=== PATIENT | female | born 1950 | race Caucasian/White ===

== ENCOUNTER 2022-03-03 19:25 | Inpatient (IN) | payer OTHER, MEDICARE, MEDICAID ==
[2022-03-03] MEDS ORDERED: Morphine 4 MG/ML VIAL ONE (20:18)
[2022-03-03 20:44] LABS: #Basophils 0.1 10x3/uL (0.0-0.2); #Monocytes 0.9 10x3/uL (0.0-1.1); #Neutrophils 6.2 10x3/uL (1.5-8.4); %Basophils 0.6 % (0.0-2.0); %Eosinophils 0.2 % (0.0-6.0); %Lymphocytes 18.4 % (18.0-47.0); %Monocytes 9.8 % (0.0-10.0); %Neutrophils 70.3 % (40.0-75.0); Hemoglobin 11.3 g/dL (12.0-15.5); Mean Corpuscular HGB CONC 31.7 g/dL (32.0-36.0); Mean Corpuscular Volume 100.8 fl (81.6-98.3); Mean Platelet Volume 9.5 fl (7.4-10.4); Platelet Count 223 10x3/uL (150-450); RBC Distribution Width 13.7 % (11.5-14.5); Red Blood Cell (RBC) Count 3.53 10x6/uL (3.90-5.03); White Blood Cell (WBC) Count 8.8 10x3/uL (3.5-10.5)
[2022-03-03] MEDS ORDERED: HYDROmorphone 0.5 MG/0.5 ML SYRINGE ONE (20:52)
[2022-03-03 20:57] LABS: ALT (SGPT) 33 U/L (8-55); AST (SGOT) 100 U/L (5-34); Albumin 2.8 g/dL (3.4-4.8); Alkaline Phosphatase 167 U/L (40-110); Anion Gap 10 mmol/L (10-20); BUN (Urea Nitrogen) 9 mg/dL (9.8-20.1); Bilirubin, Total 1.4 mg/dL (0.2-1.2); Calc. Creatinine Clearance 0 mL/min (70-130); Calcium 8.6 mg/dL (7.8-10.44); Carbon Dioxide 25 mmol/L (23-31); Chloride 99 mmol/L (98-107); Globulin 5.3 g/dL (2.4-3.5); Glucose 112 mg/dL (80-115); Protein, Total 8.1 g/dL (5.8-8.1); Sodium 130 mmol/L (136-145)
[2022-03-03 21:18] LABS: SARS-CoV-2 NAA Rapid Test Not Detected (NotDetected)
[2022-03-03 22:56] VITALS: BMI 22.4
[2022-03-03 23:01] LABS: Magnesium 1.5 mg/dL (1.6-2.6)
[2022-03-03] MEDS ORDERED: Enoxaparin Sodium 40 MG/0.4 ML SYRINGE SC SCH (23:15)
[2022-03-03] MEDS: NS 0.9% w/ 20 MEQ KCL 1,000 ML/1,000 ML BAG IV SCH (23:51)
[2022-03-03] MEDS ORDERED: Enoxaparin Sodium 40 MG/0.4 ML SYRINGE ONE (23:52)
[2022-03-03] MEDS: Morphine 2 MG/ML VIAL SLOW IVP PRN (23:53)
[2022-03-04] MEDS: Nicotine 21 MG PATCH TD SCH (01:32)
[2022-03-04] MEDS: Morphine 2 MG/ML VIAL SLOW IVP PRN (03:46)
[2022-03-04 04:46] LABS: #Monocytes 0.6 10x3/uL (0.0-1.1); #Neutrophils 2.7 10x3/uL (1.5-8.4); %Basophils 0.6 % (0.0-2.0); %Eosinophils 0.4 % (0.0-6.0); %Lymphocytes 34.8 % (18.0-47.0); Hemoglobin 11.5 g/dL (12.0-15.5); Mean Corpuscular HGB CONC 32.2 g/dL (32.0-36.0); Mean Corpuscular Hemoglobin 31.8 pg (27.0-33.0); Mean Corpuscular Volume 98.6 fl (81.6-98.3); Mean Platelet Volume 10.8 fl (7.4-10.4); Platelet Count 204 10x3/uL (150-450); RBC Distribution Width 13.7 % (11.5-14.5); Red Blood Cell (RBC) Count 3.62 10x6/uL (3.90-5.03); White Blood Cell (WBC) Count 5.2 10x3/uL (3.5-10.5)
[2022-03-04 05:05] LABS: Anion Gap 12 mmol/L (10-20); BUN (Urea Nitrogen) 10 mg/dL (9.8-20.1); Calc. Creatinine Clearance 72 mL/min (70-130); Calcium 8.3 mg/dL (7.8-10.44); Carbon Dioxide 25 mmol/L (23-31); Chloride 100 mmol/L (98-107); Glucose 157 mg/dL (80-115); Potassium 3.9 mmol/L (3.5-5.1); Sodium 133 mmol/L (136-145)
[2022-03-04] MEDS ORDERED: HYDROmorphone 0.5 MG/0.5 ML SYRINGE SLOW IVP SCH (08:15)
[2022-03-04 08:43] LABS: ALT (SGPT) 30 U/L (8-55); AST (SGOT) 86 U/L (5-34); Albumin 2.6 g/dL (3.4-4.8); Alkaline Phosphatase 156 U/L (40-110); Bilirubin, Direct 0.5 mg/dL (0.1-0.3); CK (CPK) 1515 U/L (29-168); Protein, Total 7.6 g/dL (5.8-8.1)
[2022-03-04] MEDS ORDERED: ceFAZolin 2 GM/Dextrose 50 ML 2 GM in Premix Bag 1 BAG IVPB SCH (10:00)
[2022-03-04] MEDS ORDERED: Dexmedetomidine 200 MCG/2 ML VIAL ONE (10:25)
[2022-03-04] MEDS ORDERED: ceFAZolin 2 GM/Dextrose 50 ML IVPB ONE (10:30)
[2022-03-04] MEDS ORDERED: Fentanyl 100 MCG/2 ML VIAL ONE ×2 (10:33→11:27)
[2022-03-04] MEDS ORDERED: PROPOFOL 20 ML ONE (10:33)
[2022-03-04] MEDS ORDERED: Dexamethasone 4 mg/ml Vial ONE (10:34)
[2022-03-04] MEDS ORDERED: Ondansetron PF 4 MG/2 ML Vial ONE (10:34)
[2022-03-04] MEDS ORDERED: Lidocaine 1% PF 5 ML VIAL ONE (10:34)
[2022-03-04] MEDS: Morphine 4 MG/ML VIAL SLOW IVP PRN ×2 (16:14→20:51)
[2022-03-04] MEDS: ceFAZolin 2 GM/Dextrose 50 ML 2 GM in Premix Bag 1 BAG IVPB SCH (18:43)
[2022-03-04] MEDS: NS 0.9% w/ 20 MEQ KCL 1,000 ML/1,000 ML BAG IV SCH ×2 (20:51→20:52)
[2022-03-04] MEDS ORDERED: GABAPENTIN ENACARBIL 600 MG PO SCH (21:00)
[2022-03-05] MEDS: Nicotine 21 MG PATCH TD SCH (01:28)
[2022-03-05] MEDS: ceFAZolin 2 GM/Dextrose 50 ML 2 GM in Premix Bag 1 BAG IVPB SCH (01:28)
[2022-03-05] MEDS: Morphine 4 MG/ML VIAL SLOW IVP PRN ×5 (01:29→20:27)
[2022-03-05 03:42] LABS: Mean Corpuscular HGB CONC 31.4 g/dL (32.0-36.0); Mean Corpuscular Hemoglobin 31.8 pg (27.0-33.0); Mean Corpuscular Volume 101.4 fl (81.6-98.3); Mean Platelet Volume 9.6 fl (7.4-10.4); Platelet Count 135 10x3/uL (150-450); RBC Distribution Width 13.5 % (11.5-14.5); Red Blood Cell (RBC) Count 2.83 10x6/uL (3.90-5.03); White Blood Cell (WBC) Count 5.2 10x3/uL (3.5-10.5)
[2022-03-05 03:57] LABS: ALT (SGPT) 21 U/L (8-55); AST (SGOT) 45 U/L (5-34); Albumin 2.2 g/dL (3.4-4.8); Alkaline Phosphatase 119 U/L (40-110); Anion Gap 8 mmol/L (10-20); BUN (Urea Nitrogen) 10 mg/dL (9.8-20.1); Bilirubin, Total 0.3 mg/dL (0.2-1.2); CK (CPK) 299 U/L (29-168); Calc. Creatinine Clearance 78 mL/min (70-130); Calcium 7.8 mg/dL (7.8-10.44); Carbon Dioxide 27 mmol/L (23-31); Chloride 104 mmol/L (98-107); Cholesterol 107 mg/dl (< 200 Desired); Globulin 4.4 g/dL (2.4-3.5); Glucose 185 mg/dL (80-115); HDL Cholesterol 27 mg/dL (>60 Neg Risk); LDL Cholesterol, Calculated 64 mg/dL; Magnesium 1.7 mg/dL (1.6-2.6); Potassium 4.1 mmol/L (3.5-5.1); Protein, Total 6.6 g/dL (5.8-8.1); Sodium 135 mmol/L (136-145); Triglycerides 81 mg/dL (Less than 150)
[2022-03-05] MEDS: NS 0.9% w/ 20 MEQ KCL 1,000 ML/1,000 ML BAG IV SCH ×2 (05:24→08:51)
[2022-03-05 05:35] LABS: Bilirubin Neg (Negative); Blood, Urine Negative (Negative); Clarity Slightly Cloudy (Clear); Glucose, Urine (Dipstick) 50 mg/dL (Negative); Ketone, Urine Negative (Negative); Leukocyte 100 (Negative); Nitrite Negative (Negative); Protein, Urine (Dipstick) Negative (Neg-Trace); Specific Gravity, Urine 1.015 (1.002-1.036); Urobilinogen Normal mg/dL (Less than 2)
[2022-03-05 05:39] LABS: Urine Culture Reflex No No
[2022-03-05 05:49] LABS: Creatinine, Urine 67.11 mg/dL (47-110)
[2022-03-05 05:50] LABS: Bacteria/HPF 1+ HPF (None Seen); RBC/HPF 0-3 HPF (0-3); Squamous Epithelial 0-3 HPF (0-3)
[2022-03-05] MEDS: Lisinopril 10 MG TAB PO SCH (08:51)
[2022-03-05] MEDS: Folic Acid 1 MG TAB PO SCH (08:51)
[2022-03-05 12:42] LABS: Hemoglobin A1c 5.1 % (4.0-6.0)
[2022-03-05] MEDS: Albuterol 200 PUFF (6.7GM INHALER) INH SCH ×2 (13:38→19:50)
[2022-03-06] MEDS: Morphine 4 MG/ML VIAL SLOW IVP PRN ×6 (00:52→23:37)
[2022-03-06] MEDS: Nicotine 21 MG PATCH TD SCH (00:58)
[2022-03-06 04:56] LABS: ALT (SGPT) 17 U/L (8-55); AST (SGOT) 37 U/L (5-34); Albumin 2.4 g/dL (3.4-4.8); Alkaline Phosphatase 124 U/L (40-110); Anion Gap 11 mmol/L (10-20); BUN (Urea Nitrogen) 8 mg/dL (9.8-20.1); Bilirubin, Total 0.5 mg/dL (0.2-1.2); Calc. Creatinine Clearance 82 mL/min (70-130); Carbon Dioxide 26 mmol/L (23-31); Chloride 101 mmol/L (98-107); Globulin 4.6 g/dL (2.4-3.5); Glucose 94 mg/dL (80-115); Magnesium 1.5 mg/dL (1.6-2.6); Potassium 4.1 mmol/L (3.5-5.1); Sodium 134 mmol/L (136-145)
[2022-03-06] MEDS: Folic Acid 1 MG TAB PO SCH (08:16)
[2022-03-06] MEDS: Lisinopril 10 MG TAB PO SCH (08:16)
[2022-03-06] MEDS: Albuterol 200 PUFF (6.7GM INHALER) INH SCH ×6 (10:40→20:00)
[2022-03-06] MEDS: Ondansetron PF 4 MG/2 ML Vial IVP PRN ×2 (15:08→21:23)
[2022-03-06] MEDS ORDERED: Promethazine 25 MG TAB PO SCH (23:45)
[2022-03-07] MEDS: Nicotine 21 MG PATCH TD SCH (00:22)
[2022-03-07] MEDS: Albuterol 200 PUFF (6.7GM INHALER) INH SCH ×7 (04:00→19:45)
[2022-03-07] MEDS: Morphine 4 MG/ML VIAL SLOW IVP PRN ×3 (04:05→13:12)
[2022-03-07] MEDS: Ondansetron PF 4 MG/2 ML Vial IVP PRN ×2 (04:22→13:12)
[2022-03-07 05:13] LABS: #Monocytes 0.6 10x3/uL (0.0-1.1); #Neutrophils 4.4 10x3/uL (1.5-8.4); %Basophils 0.3 % (0.0-2.0); %Eosinophils 0.3 % (0.0-6.0); %Lymphocytes 16.6 % (18.0-47.0); %Monocytes 10.4 % (0.0-10.0); %Neutrophils 71.9 % (40.0-75.0); Hemoglobin 11.1 g/dL (12.0-15.5); Mean Corpuscular HGB CONC 33.8 g/dL (32.0-36.0); Mean Corpuscular Hemoglobin 32.3 pg (27.0-33.0); Mean Corpuscular Volume 95.3 fl (81.6-98.3); Platelet Count 185 10x3/uL (150-450); RBC Distribution Width 13.2 % (11.5-14.5); Red Blood Cell (RBC) Count 3.44 10x6/uL (3.90-5.03); White Blood Cell (WBC) Count 6.1 10x3/uL (3.5-10.5)
[2022-03-07 05:36] LABS: ALT (SGPT) 17 U/L (8-55); AST (SGOT) 35 U/L (5-34); Albumin 2.7 g/dL (3.4-4.8); Alkaline Phosphatase 130 U/L (40-110); Anion Gap 16 mmol/L (10-20); BUN (Urea Nitrogen) 6 mg/dL (9.8-20.1); Bilirubin, Total 1.1 mg/dL (0.2-1.2); Calc. Creatinine Clearance 87 mL/min (70-130); Calcium 8.2 mg/dL (7.8-10.44); Carbon Dioxide 23 mmol/L (23-31); Chloride 92 mmol/L (98-107); Globulin 5.1 g/dL (2.4-3.5); Glucose 120 mg/dL (80-115); Magnesium 1.5 mg/dL (1.6-2.6); Potassium 3.6 mmol/L (3.5-5.1); Protein, Total 7.8 g/dL (5.8-8.1); Sodium 127 mmol/L (136-145)
[2022-03-07] MEDS: Folic Acid 1 MG TAB PO SCH (08:38)
[2022-03-07] MEDS: Lisinopril 10 MG TAB PO SCH (08:38)
[2022-03-07] MEDS ORDERED: Lactated Ringer's 500 ML IV SCH (09:30)
[2022-03-07] MEDS: Lactated Ringer's 1,000 ML IV SCH (10:06)
[2022-03-07] MEDS: Labetalol HCl 100 MG/20 ML VIAL SLOW IVP PRN ×2 (10:06→13:13)
[2022-03-07] MEDS ORDERED: Labetalol HCl 100 MG/20 ML VIAL SLOW IVP PRN (14:59)
[2022-03-07] MEDS ORDERED: Lisinopril 10 MG TAB PO SCH (15:00)
[2022-03-07 15:19] LABS: Sodium 126 mmol/L (136-145)
[2022-03-07] MEDS: hydrALAZINE 20 MG/ML VIAL SLOW IVP PRN (16:44)
[2022-03-07] MEDS: traMADol HCl 50 MG TAB PO PRN ×2 (17:39→21:35)
[2022-03-08] MEDS: Albuterol 200 PUFF (6.7GM INHALER) INH SCH ×5 (01:00→19:40)
[2022-03-08] MEDS: Nicotine 21 MG PATCH TD SCH (01:26)
[2022-03-08] MEDS: traMADol HCl 50 MG TAB PO PRN ×5 (01:28→22:18)
[2022-03-08] MEDS: Lactated Ringer's 1,000 ML IV SCH ×2 (03:41→08:01)
[2022-03-08 04:56] LABS: ALT (SGPT) 15 U/L (8-55); AST (SGOT) 30 U/L (5-34); Albumin 2.6 g/dL (3.4-4.8); Alkaline Phosphatase 120 U/L (40-110); Anion Gap 14 mmol/L (10-20); BUN (Urea Nitrogen) 13 mg/dL (9.8-20.1); Bilirubin, Total 1.3 mg/dL (0.2-1.2); Calc. Creatinine Clearance 87 mL/min (70-130); Calcium 8.4 mg/dL (7.8-10.44); Carbon Dioxide 23 mmol/L (23-31); Chloride 89 mmol/L (98-107); Globulin 4.7 g/dL (2.4-3.5); Glucose 102 mg/dL (80-115); Magnesium 1.5 mg/dL (1.6-2.6); Potassium 3.3 mmol/L (3.5-5.1); Protein, Total 7.3 g/dL (5.8-8.1); Sodium 123 mmol/L (136-145)
[2022-03-08] MEDS: Ondansetron PF 4 MG/2 ML Vial IVP PRN (05:29)
[2022-03-08] MEDS: hydrALAZINE 20 MG/ML VIAL SLOW IVP PRN (05:32)
[2022-03-08 07:30] LABS: #Eosinphils 0.1 10x3/uL (0.0-0.5); #Monocytes 0.9 10x3/uL (0.0-1.1); #Neutrophils 6.9 10x3/uL (1.5-8.4); %Basophils 0.2 % (0.0-2.0); %Eosinophils 0.7 % (0.0-6.0); %Lymphocytes 16.1 % (18.0-47.0); %Monocytes 9.5 % (0.0-10.0); %Neutrophils 73.1 % (40.0-75.0); Hemoglobin 11.6 g/dL (12.0-15.5); Mean Corpuscular HGB CONC 34.9 g/dL (32.0-36.0); Mean Corpuscular Hemoglobin 32.4 pg (27.0-33.0); Mean Corpuscular Volume 92.7 fl (81.6-98.3); Mean Platelet Volume 9.8 fl (7.4-10.4); Platelet Count 237 10x3/uL (150-450); RBC Distribution Width 13.2 % (11.5-14.5); Red Blood Cell (RBC) Count 3.58 10x6/uL (3.90-5.03); White Blood Cell (WBC) Count 9.4 10x3/uL (3.5-10.5)
[2022-03-08] MEDS: Lisinopril 20 MG TAB PO SCH (08:00)
[2022-03-08] MEDS: Folic Acid 1 MG TAB PO SCH (08:01)
[2022-03-08] MEDS: Magnesium 2 GM/50 ML(in water) 2 GM in Premix Bag 1 BAG IVPB SCH (10:27)
[2022-03-08] MEDS ORDERED: Sodium Chloride 3% 200 ML IVPB SCH (11:00)
[2022-03-08] MEDS ORDERED: Potassium Chloride 20 MEQ TAB PO SCH (11:00)
[2022-03-08 14:01] LABS: Bilirubin Neg (Negative); Blood, Urine 10 (Negative); Clarity Cloudy (Clear); Glucose, Urine (Dipstick) Normal (Negative); Ketone, Urine Negative (Negative); Leukocyte 100 (Negative); Nitrite Negative (Negative); Protein, Urine (Dipstick) 30 mg/dl (Neg-Trace)
[2022-03-08 14:11] LABS: WBC/HPF 21-50 HPF (0-3)
[2022-03-08 14:12] LABS: Bacteria/HPF 3+ HPF (None Seen); Mucous/LPF 2+ LPF (<2+); Transitional Epithelial 0-3 HPF (None Seen)
[2022-03-08 14:25] LABS: Creatinine, Urine 58.88 mg/dL (47-110)
[2022-03-08 14:44] LABS: Anion Gap 15 mmol/L (10-20); BUN (Urea Nitrogen) 23 mg/dL (9.8-20.1); Calc. Creatinine Clearance 56 mL/min (70-130); Calcium 8.7 mg/dL (7.8-10.44); Carbon Dioxide 23 mmol/L (23-31); Chloride 87 mmol/L (98-107); Glucose 95 mg/dL (80-115); Potassium 4.1 mmol/L (3.5-5.1); Sodium 121 mmol/L (136-145)
[2022-03-08] MEDS: Potassium Chloride 20 MEQ TAB PO SCH (17:28)
[2022-03-08 17:33] LABS: Anion Gap 12 mmol/L (10-20); BUN (Urea Nitrogen) 28 mg/dL (9.8-20.1); Calc. Creatinine Clearance 45 mL/min (70-130); Calcium 8.6 mg/dL (7.8-10.44); Carbon Dioxide 27 mmol/L (23-31); Chloride 91 mmol/L (98-107); Glucose 92 mg/dL (80-115); Potassium 4.2 mmol/L (3.5-5.1); Sodium 126 mmol/L (136-145)
[2022-03-09] MEDS: Albuterol 200 PUFF (6.7GM INHALER) INH SCH ×6 (01:00→20:45)
[2022-03-09] MEDS: traMADol HCl 50 MG TAB PO PRN ×3 (03:48→20:42)
[2022-03-09] MEDS: Nicotine 21 MG PATCH TD SCH (03:50)
[2022-03-09 04:55] LABS: #Eosinphils 0.1 10x3/uL (0.0-0.5); #Neutrophils 4.4 10x3/uL (1.5-8.4); %Basophils 0.3 % (0.0-2.0); %Eosinophils 1.4 % (0.0-6.0); %Lymphocytes 22.2 % (18.0-47.0); %Monocytes 13.6 % (0.0-10.0); %Neutrophils 62.1 % (40.0-75.0); Mean Corpuscular Hemoglobin 31.3 pg (27.0-33.0); Mean Platelet Volume 9.1 fl (7.4-10.4); Platelet Count 235 10x3/uL (150-450); RBC Distribution Width 13.6 % (11.5-14.5); Red Blood Cell (RBC) Count 3.19 10x6/uL (3.90-5.03); White Blood Cell (WBC) Count 7.1 10x3/uL (3.5-10.5)
[2022-03-09 05:12] LABS: ALT (SGPT) 15 U/L (8-55); AST (SGOT) 26 U/L (5-34); Albumin 2.3 g/dL (3.4-4.8); Alkaline Phosphatase 101 U/L (40-110); Anion Gap 13 mmol/L (10-20); BUN (Urea Nitrogen) 31 mg/dL (9.8-20.1); Calc. Creatinine Clearance 62 mL/min (70-130); Carbon Dioxide 22 mmol/L (23-31); Chloride 100 mmol/L (98-107); Globulin 3.9 g/dL (2.4-3.5); Glucose 82 mg/dL (80-115); Magnesium 1.8 mg/dL (1.6-2.6); Potassium 4.2 mmol/L (3.5-5.1); Protein, Total 6.2 g/dL (5.8-8.1); Sodium 131 mmol/L (136-145)
[2022-03-09] MEDS: Potassium Chloride 20 MEQ TAB PO SCH ×2 (08:33→17:15)
[2022-03-09] MEDS: Folic Acid 1 MG TAB PO SCH (08:34)
[2022-03-09] MEDS: Lisinopril 20 MG TAB PO SCH (09:46)
[2022-03-09] MEDS: Magnesium 2 GM/50 ML(in water) 2 GM in Premix Bag 1 BAG IVPB SCH (12:36)
[2022-03-09 15:20] LABS: Anion Gap 12 mmol/L (10-20); BUN (Urea Nitrogen) 30 mg/dL (9.8-20.1); Calc. Creatinine Clearance 64 mL/min (70-130); Calcium 8.3 mg/dL (7.8-10.44); Carbon Dioxide 23 mmol/L (23-31); Chloride 101 mmol/L (98-107); Glucose 130 mg/dL (80-115); Sodium 131 mmol/L (136-145)
[2022-03-10] MEDS: traMADol HCl 50 MG TAB PO PRN ×4 (00:50→13:38)
[2022-03-10] MEDS: Nicotine 21 MG PATCH TD SCH (00:50)
[2022-03-10] MEDS: Albuterol 200 PUFF (6.7GM INHALER) INH SCH ×5 (01:00→15:30)
[2022-03-10 04:02] LABS: #Basophils 0.1 10x3/uL (0.0-0.2); #Eosinphils 0.1 10x3/uL (0.0-0.5); #Monocytes 0.8 10x3/uL (0.0-1.1); #Neutrophils 3.2 10x3/uL (1.5-8.4); %Basophils 0.9 % (0.0-2.0); %Eosinophils 1.6 % (0.0-6.0); %Lymphocytes 25.8 % (18.0-47.0); %Monocytes 13.7 % (0.0-10.0); %Neutrophils 57.5 % (40.0-75.0); Hemoglobin 9.9 g/dL (12.0-15.5); Mean Corpuscular HGB CONC 33.2 g/dL (32.0-36.0); Mean Corpuscular Hemoglobin 32.5 pg (27.0-33.0); Mean Corpuscular Volume 97.7 fl (81.6-98.3); Platelet Count 236 10x3/uL (150-450); RBC Distribution Width 14.2 % (11.5-14.5); Red Blood Cell (RBC) Count 3.05 10x6/uL (3.90-5.03); White Blood Cell (WBC) Count 5.6 10x3/uL (3.5-10.5)
[2022-03-10 04:18] LABS: ALT (SGPT) 16 U/L (8-55); AST (SGOT) 33 U/L (5-34); Albumin 2.4 g/dL (3.4-4.8); Alkaline Phosphatase 105 U/L (40-110); Anion Gap 10 mmol/L (10-20); BUN (Urea Nitrogen) 19 mg/dL (9.8-20.1); Calc. Creatinine Clearance 82 mL/min (70-130); Calcium 8.2 mg/dL (7.8-10.44); Carbon Dioxide 23 mmol/L (23-31); Chloride 102 mmol/L (98-107); Globulin 4.2 g/dL (2.4-3.5); Glucose 84 mg/dL (80-115); Magnesium 1.8 mg/dL (1.6-2.6); Potassium 4.7 mmol/L (3.5-5.1); Protein, Total 6.6 g/dL (5.8-8.1); Sodium 130 mmol/L (136-145)
[2022-03-10] MEDS: Potassium Chloride 20 MEQ TAB PO SCH ×2 (08:27→16:53)
[2022-03-10] MEDS: Folic Acid 1 MG TAB PO SCH (08:27)
[2022-03-10] MEDS: Sodium Chloride 1 GM TAB PO SCH ×2 (08:45→16:53)
[2022-03-10 13:17] LABS: Kappa Lambda Light Chain Ratio 0.67 (0.26-1.65); Kappa Light Chains 60.9 mg/L (3.3-19.4); Lambda Light Chain 90.5 mg/L (5.7-26.3)
[2022-03-10 15:56] VITALS: TEMP 99
[2022-03-10 16:29] LABS: Urine Total Volume 1500 mL (250-2400)
[2022-03-10] MEDS: Lisinopril 20 MG TAB PO SCH (16:43)
[2022-03-10 16:49] LABS: 24 Hr Creatinine 496.95 mg/24 hr (710-1650); Creatinine, Urine 33.13 mg/dL (47-110)
[2022-03-10 16:51] LABS: Protein, Urine Less than 10 mg/dL (1-14)
[2022-03-10 16:53] VITALS: BP 180/114
[2022-03-11 17:14] LABS: A/G Ratio 0.5 (0.7-1.7); Alpha 1 0.3 g/dL (0.0-0.4); Alpha 2 0.8 g/dL (0.4-1.0); Gamma 2.2 g/dL (0.4-1.8); Globulin, Total 4.3 g/dL (2.2-3.9); M-Spike Not Observed g/dL (Not Observed)
== END 2022-03-10 18:49 | disposition home or self-care (01) | DRG 481 ==
LOC: CSHERS 19:25 → CSHTELE 22:33
PROVIDERS: ADMIT Family Medicine; ATTEND Hospitalist
PROC: 0QS706Z Reposition Left Upper Femur with Intramedullary Internal Fixation Device, Open Approach (ICD-10-PCS; principal; 2022-03-04)
DX: S72.142A Displaced intertrochanteric fracture of left femur, initial encounter for closed fracture (principal); D62 Acute posthemorrhagic anemia; E22.2 Syndrome of inappropriate secretion of antidiuretic hormone; Z20.822 Contact with and (suspected) exposure to COVID-19; I10 Essential (primary) hypertension; G89.29 Other chronic pain; M06.9 Rheumatoid arthritis, unspecified; E87.6 Hypokalemia; E83.42 Hypomagnesemia; M47.9 Spondylosis, unspecified; F17.210 Nicotine dependence, cigarettes, uncomplicated; J44.9 Chronic obstructive pulmonary disease, unspecified; W01.0XXA Fall on same level from slipping, tripping and stumbling without subsequent striking against object, initial encounter; Z79.899 Other long term (current) drug therapy; Z90.49 Acquired absence of other specified parts of digestive tract; Y92.009 Unspecified place in unspecified non-institutional (private) residence as the place of occurrence of the external cause
CPT/HCPCS: 36415; 71045; 80048; 80053; 80061; 80076; 81001; 82306; 82550; 82570; 83036; 83735; 83880; 83883; 83930; 83935; 84156; 84165; 84166; 84300; 84443; 84540; 85025; 85027; 87040; 87086; 93005; 94664; 94760; 96374; 96375; C1713; J0360; J0690; J1100; J1170; J2270; J2405; J2704; J3010; J3475; J3480; J7120; J7131; Q0169; U0002

== ENCOUNTER 2022-12-27 10:49 | Inpatient (IN) | payer OTHER, MEDICAID ==
[~2022-12-27 10:49] MED LIST: Iopamidol 300 61% 100 ML VIAL FS ONE
[2022-12-27] MEDS ORDERED: Ondansetron PF 4 MG/2 ML Vial ONE (11:17)
[2022-12-27] MEDS ORDERED: Pantoprazole 40 MG VIAL ONE (11:17)
[2022-12-27] MEDS ORDERED: Octreotide Acetate 50 MCG/ML AMP ONE (11:18)
[2022-12-27] MEDS ORDERED: Octreotide Acetate 1,250 MCG in Sodium Chloride 0.9% 250 ML 250 ML IVPB SCH (11:30)
[2022-12-27] MEDS ORDERED: Pantoprazole 80 MG, Admixture Fee 1 EACH in Sodium Chloride 0.9% 100 ML IVPB SCH (11:30)
[2022-12-27] MEDS ORDERED: Cefepime 2 GM VIAL ONE (11:46)
[2022-12-27 11:47] LABS: Hemoglobin 13.1 g/dL (12.0-15.5); Mean Corpuscular HGB CONC 32.9 g/dL (32.0-36.0); Mean Corpuscular Hemoglobin 29.8 pg (27.0-33.0); Mean Corpuscular Volume 90.7 fl (81.6-98.3); Mean Platelet Volume 9.6 fl (7.4-10.4); Platelet Count 142 10x3/uL (150-450); Red Blood Cell (RBC) Count 4.39 10x6/uL (3.90-5.03); White Blood Cell (WBC) Count 12.5 10x3/uL (3.5-10.5)
[2022-12-27 11:50] LABS: INR-International Normal Ratio 1.5; PTT 27.3 sec (22.0-33.0); Prothrombin Time 16.2 sec (9.5-12.1)
[2022-12-27 11:54] LABS: ALT (SGPT) 29 U/L (8-55); AST (SGOT) 38 U/L (5-34); Albumin 2.2 g/dL (3.4-4.8); Alkaline Phosphatase 134 U/L (40-110); Anion Gap 12 mmol/L (10-20); BUN (Urea Nitrogen) 10 mg/dL (9.8-20.1); Bilirubin, Total 1.5 mg/dL (0.2-1.2); Calc. Creatinine Clearance 0 mL/min (70-130); Calcium 7.2 mg/dL (7.8-10.44); Carbon Dioxide 19 mmol/L (23-31); Chloride 100 mmol/L (98-107); Estimated GFR 101; Globulin 5.8 g/dL (2.4-3.5); Glucose 112 mg/dL (80-115); Lipase 4 U/L (8-78); Potassium 3.3 mmol/L (3.5-5.1); Sodium 128 mmol/L (136-145)
[2022-12-27] MEDS ORDERED: Vancomycin HCl 750 MG in Sodium Chloride 0.9% 250 ML 250 ML IVPB SCH (12:00)
[2022-12-27 12:42] LABS: Band 33 % (5-11); Lymphocytes 5 % (21-51); Metamyelocyte 4 % (0-0); Monocytes 5 % (0-10); Reactive Lymphocytes 2 % (0-10)
[2022-12-27 12:48] LABS: Dohle Bodies SLIGHT; Large Platelets SLIGHT; Neutrophil 51 % (42-75); Platelet Clumps SLIGHT; Platelet Morphology Comment Appears Adequate; Toxic Granulation SLIGHT; Vacuoles SLIGHT
[2022-12-27 12:50] LABS: MDiff Complete? YES
[2022-12-27 12:51] LABS: RBC Morphology Normal
[2022-12-27 13:34] LABS: SARS-CoV-2 NAA Rapid Test Not Detected (NotDetected)
[2022-12-27 14:00] LABS: Bilirubin Neg (Negative); Blood, Urine 150 (Negative); Clarity Cloudy (Clear); Glucose, Urine (Dipstick) Normal (Negative); Ketone, Urine Negative (Negative); Leukocyte 500 (Negative); Nitrite Positive (Negative); Protein, Urine (Dipstick) 30 mg/dl (Neg-Trace); pH, Urine 6.5 (5.0-9.0)
[2022-12-27] MEDS ORDERED: Acetaminophen 325 MG TAB PO PRN (14:32)
[2022-12-27] MEDS ORDERED: Ondansetron PF 4 MG/2 ML Vial IVP PRN (14:32)
[2022-12-27 14:45] LABS: WBC/HPF Greater than 50 HPF (0-3)
[2022-12-27 14:46] LABS: Bacteria/HPF 3+ HPF (None Seen)
[2022-12-27 14:47] LABS: Mucous/LPF 1+ LPF (<2+)
[2022-12-27 15:08] LABS: Lactic Acid 2.6 mmol/L (0.5-2.2)
[2022-12-27 15:14] LABS: Magnesium 1.3 mg/dL (1.6-2.6)
[2022-12-27 15:58] VITALS: BMI 20.5
[2022-12-27] MEDS ORDERED: Potassium Chloride 20 MEQ in Premix Bag 1 BAG IVPB SCH (16:15)
[2022-12-27] MEDS: D5 1/2 NS w/20 mEq KCL 1,000 ML IV SCH ×2 (16:25→23:49)
[2022-12-27] MEDS: Nicotine 21 MG PATCH TD SCH (16:26)
[2022-12-27 17:37] LABS: Hemoglobin 12.2 g/dL (12.0-15.5)
[2022-12-27] MEDS: Cefepime 1 GM in Sodium Chloride 0.9% 100 ML IVPB SCH (23:31)
[2022-12-28] MEDS ORDERED: Fentanyl 100 MCG/2 ML VIAL SLOW IVP SCH (03:45)
[2022-12-28] MEDS ORDERED: Octreotide Acetate 1,250 MCG in Sodium Chloride 0.9% 250 ML 250 ML IVPB SCH (04:15)
[2022-12-28] MEDS ORDERED: Pantoprazole 80 MG, Admixture Fee 1 EACH in Sodium Chloride 0.9% 100 ML IVPB SCH (04:30)
[2022-12-28 04:43] LABS: ALT (SGPT) 21 U/L (8-55); AST (SGOT) 25 U/L (5-34); Albumin 1.9 g/dL (3.4-4.8); Alkaline Phosphatase 90 U/L (40-110); Anion Gap 10 mmol/L (10-20); BUN (Urea Nitrogen) 10 mg/dL (9.8-20.1); Bilirubin, Total 0.9 mg/dL (0.2-1.2); Calc. Creatinine Clearance 77 mL/min (70-130); Calcium 8.1 mg/dL (7.8-10.44); Carbon Dioxide 20 mmol/L (23-31); Chloride 106 mmol/L (98-107); Estimated GFR 101; Globulin 4.8 g/dL (2.4-3.5); Glucose 187 mg/dL (80-115); Potassium 3.6 mmol/L (3.5-5.1); Protein, Total 6.7 g/dL (5.8-8.1); Sodium 132 mmol/L (136-145)
[2022-12-28 05:13] LABS: Iron 13 ug/dL (50-170); Iron Binding Capacity, Total 153 mcg/dL (265-497)
[2022-12-28 05:13] LABS: #Monocytes 0.5 10x3/uL (0.0-1.1); %Basophils 0.4 % (0.0-2.0); %Eosinophils 0.1 % (0.0-6.0); %Lymphocytes 11.1 % (18.0-47.0); %Monocytes 5.6 % (0.0-10.0); %Neutrophils 82.1 % (40.0-75.0); Hemoglobin 11.9 g/dL (12.0-15.5); Mean Corpuscular Hemoglobin 30.1 pg (27.0-33.0); Mean Corpuscular Volume 93.9 fl (81.6-98.3); Mean Platelet Volume 9.7 fl (7.4-10.4); RBC Distribution Width 14.3 % (11.5-14.5); Red Blood Cell (RBC) Count 3.96 10x6/uL (3.90-5.03); White Blood Cell (WBC) Count 8.5 10x3/uL (3.5-10.5)
[2022-12-28 05:14] LABS: Platelet Count 123 10x3/uL (150-450)
[2022-12-28 06:11] LABS: Band 27 % (5-11); Lymphocytes 12 % (21-51); Metamyelocyte 1 % (0-0); Monocytes 6 % (0-10)
[2022-12-28 06:12] LABS: Neutrophil 54 % (42-75)
[2022-12-28 06:13] LABS: Platelet Morphology Comment Appears Decreased; RBC Morphology Normal; Toxic Granulation SLIGHT; Vacuoles SLIGHT
[2022-12-28] MEDS ORDERED: Ipratropium/Albuterol 3 ML NEB NEB PRN (07:41)
[2022-12-28] MEDS: D5 1/2 NS w/20 mEq KCL 1,000 ML IV SCH (09:40)
[2022-12-28] MEDS ORDERED: Sodium Chloride 0.9% 100 ML ONE (11:04)
[2022-12-28] MEDS: Cefepime 1 GM in Sodium Chloride 0.9% 100 ML IVPB SCH ×2 (11:05→23:17)
[2022-12-28] MEDS ORDERED: Ketamine 50 MG/ML (10ML VIAL) ONE (11:18)
[2022-12-28] MEDS ORDERED: PROPOFOL 0 ML ONE (11:48)
[2022-12-28] MEDS ORDERED: Fentanyl 100 MCG/2 ML VIAL ONE (11:49)
[2022-12-28] MEDS: HYDROcodone/Acetaminophen 7.5/325 mg Tablet PO PRN ×2 (13:52→19:53)
[2022-12-28] MEDS ORDERED: Vancomycin HCl 1 GM in Sodium Chloride 0.9% 250 ML 250 ML IVPB SCH (15:15)
[2022-12-28] MEDS: Nicotine 21 MG PATCH TD SCH (16:16)
[2022-12-28] MEDS ORDERED: VANCOMYCIN 1.25 GM/250 ML BAG IVPB SCH (21:00)
[2022-12-29] MEDS: HYDROcodone/Acetaminophen 7.5/325 mg Tablet PO PRN ×4 (02:29→23:18)
[2022-12-29] MEDS: D5 1/2 NS w/20 mEq KCL 1,000 ML IV SCH ×3 (02:30→16:47)
[2022-12-29 03:55] LABS: #Eosinphils 0.1 10x3/uL (0.0-0.5); #Monocytes 0.4 10x3/uL (0.0-1.1); %Basophils 0.3 % (0.0-2.0); %Eosinophils 0.9 % (0.0-6.0); %Lymphocytes 14.3 % (18.0-47.0); %Monocytes 5.7 % (0.0-10.0); Hemoglobin 11.4 g/dL (12.0-15.5); Mean Corpuscular HGB CONC 32.2 g/dL (32.0-36.0); Mean Corpuscular Hemoglobin 30.2 pg (27.0-33.0); Mean Corpuscular Volume 93.7 fl (81.6-98.3); Mean Platelet Volume 9.7 fl (7.4-10.4); Platelet Count 115 10x3/uL (150-450); RBC Distribution Width 14.4 % (11.5-14.5); Red Blood Cell (RBC) Count 3.78 10x6/uL (3.90-5.03); White Blood Cell (WBC) Count 6.5 10x3/uL (3.5-10.5)
[2022-12-29 04:02] LABS: Anion Gap 9 mmol/L (10-20); BUN (Urea Nitrogen) 8 mg/dL (9.8-20.1); Calc. Creatinine Clearance 95 mL/min (70-130); Carbon Dioxide 21 mmol/L (23-31); Chloride 107 mmol/L (98-107); Estimated GFR 105; Glucose 107 mg/dL (80-115); Potassium 3.3 mmol/L (3.5-5.1); Sodium 134 mmol/L (136-145)
[2022-12-29] MEDS ORDERED: Pantoprazole 40 MG VIAL IVP SCH (09:00)
[2022-12-29] MEDS: Cefepime 1 GM in Sodium Chloride 0.9% 100 ML IVPB SCH ×2 (11:34→23:18)
[2022-12-29] MEDS ORDERED: Vancomycin HCl 750 MG in Sodium Chloride 0.9% 250 ML 250 ML IVPB SCH (15:00)
[2022-12-29] MEDS: Nicotine 21 MG PATCH TD SCH (16:21)
[2022-12-30] MEDS: HYDROcodone/Acetaminophen 7.5/325 mg Tablet PO PRN ×4 (06:31→22:16)
[2022-12-30] MEDS ORDERED: Pantoprazole 40 MG VIAL IVP SCH (09:00)
[2022-12-30] MEDS: Cefepime 1 GM in Sodium Chloride 0.9% 100 ML IVPB SCH (12:11)
[2022-12-30] MEDS: D5 1/2 NS w/20 mEq KCL 1,000 ML IV SCH (12:16)
[2022-12-30 12:59] LABS: HBCM Index 0.08 S/CO (0-0.79); HBSAg Index 0.39 S/CO (0-0.99); Hep A IgM AB Non-Reactive (NonReactive); Hep A IgM S/CO 0.16 S/CO (0-0.79); Hep B Surf Ag Non-Reactive S/CO (NonReactive); Hep C IgG Ab Non-Reactive (NonReactive); Hep C Index 0.28 S/CO (0-0.79); Hepatitis B Core IgM Abs Non-Reactive (NonReactive)
[2022-12-30 13:50] LABS: EliA Vaculitis New Method **** NEW METHOD ****
[2022-12-30 14:33] LABS: ANA Symphony (Qualitative) Equivocal: See Note (Negative); ANA Symphony (Quantitative) 0.8 Ratio (< 0.7 Negative); dsDNA IgG Antibody 8.4 IU/mL (<10 Negative)
[2022-12-30] MEDS: Nicotine 21 MG PATCH TD SCH (16:22)
[2022-12-30] MEDS: Cefdinir 300 MG CAP PO SCH (20:47)
[2022-12-30] MEDS ORDERED: Cefepime 2 GM in Sodium Chloride 0.9% 100 ML IVPB SCH (23:59)
[2022-12-31 04:56] LABS: #Eosinphils 0.1 10x3/uL (0.0-0.5); #Monocytes 0.6 10x3/uL (0.0-1.1); #Neutrophils 4.7 10x3/uL (1.5-8.4); %Basophils 0.3 % (0.0-2.0); %Eosinophils 1.1 % (0.0-6.0); %Monocytes 8.9 % (0.0-10.0); %Neutrophils 73.8 % (40.0-75.0); Hemoglobin 11.6 g/dL (12.0-15.5); Mean Corpuscular HGB CONC 31.8 g/dL (32.0-36.0); Mean Corpuscular Hemoglobin 29.3 pg (27.0-33.0); Mean Corpuscular Volume 92.2 fl (81.6-98.3); Mean Platelet Volume 9.6 fl (7.4-10.4); Platelet Count 160 10x3/uL (150-450); Red Blood Cell (RBC) Count 3.96 10x6/uL (3.90-5.03); White Blood Cell (WBC) Count 6.4 10x3/uL (3.5-10.5)
[2022-12-31 05:17] LABS: ALT (SGPT) 18 U/L (8-55); AST (SGOT) 33 U/L (5-34); Albumin 2.1 g/dL (3.4-4.8); Alkaline Phosphatase 133 U/L (40-110); Anion Gap 9 mmol/L (10-20); BUN (Urea Nitrogen) 5 mg/dL (9.8-20.1); Bilirubin, Total 0.8 mg/dL (0.2-1.2); Calc. Creatinine Clearance 105 mL/min (70-130); Calcium 7.9 mg/dL (7.8-10.44); Carbon Dioxide 25 mmol/L (23-31); Chloride 103 mmol/L (98-107); Estimated GFR 106; Globulin 5.1 g/dL (2.4-3.5); Glucose 102 mg/dL (80-115); Potassium 3.2 mmol/L (3.5-5.1); Protein, Total 7.2 g/dL (5.8-8.1); Sodium 134 mmol/L (136-145)
[2022-12-31] MEDS: HYDROcodone/Acetaminophen 7.5/325 mg Tablet PO PRN ×4 (05:53→23:50)
[2022-12-31] MEDS ORDERED: D5 1/2 NS w/20 mEq KCL 1,000 ML ONE (06:40)
[2022-12-31] MEDS: D5 1/2 NS w/20 mEq KCL 1,000 ML IV SCH (06:47)
[2022-12-31] MEDS ORDERED: Electrolyte Replacement Protocol 1 EACH FS SCH (07:15)
[2022-12-31 07:41] LABS: Magnesium 1.4 mg/dL (1.6-2.6); Phosphorus 2.3 mg/dL (2.3-4.7)
[2022-12-31] MEDS ORDERED: Potassium Chloride 20 MEQ TAB PO SCH (08:00)
[2022-12-31] MEDS: Cefdinir 300 MG CAP PO SCH ×2 (08:50→21:51)
[2022-12-31] MEDS ORDERED: Polyethylene Glycol 3350 17 GM Packet PO PRN (09:39)
[2022-12-31] MEDS ORDERED: Senokot S 8.6-50 MG TAB PO SCH ×2 (10:00→21:00)
[2022-12-31] MEDS: Magnesium 2 GM/50 ML(in water) 2 GM in Premix Bag 1 BAG IVPB SCH ×2 (11:28→14:18)
[2022-12-31] MEDS ORDERED: Magnesium 2 GM/50 ML BAG (IN WATER) ONE (11:41)
[2022-12-31] MEDS ORDERED: Saccharomyces boulardii 250 MG CAP PO SCH (14:00)
[2022-12-31 14:14] LABS: Potassium 3.6 mmol/L (3.5-5.1)
[2022-12-31] MEDS: Nicotine 21 MG PATCH TD SCH (16:59)
[2022-12-31] MEDS ORDERED: Cholecalciferol 1,000 UNITS (25 MCG) TAB PO SCH (21:00)
[2022-12-31] MEDS ORDERED: Cyanocobalamin (Vitamin B-12) 1,000 MCG TAB PO SCH (21:00)
[2022-12-31] MEDS ORDERED: Folic Acid 1 MG TAB PO SCH (21:00)
[2022-12-31] MEDS ORDERED: Bisacodyl 10 MG SUPP PR SCH (21:00)
[2022-12-31] MEDS ORDERED: Nadolol 40 MG TAB PO SCH (21:00)
[2022-12-31] MEDS ORDERED: Multivit, Therapeutic 1 TAB PO SCH (21:00)
[2022-12-31] MEDS: Senokot S 8.6-50 MG TAB PO SCH (22:43)
[2023-01-01] MEDS: HYDROcodone/Acetaminophen 7.5/325 mg Tablet PO PRN ×2 (06:01→12:42)
[2023-01-01 06:03] LABS: Anion Gap 9 mmol/L (10-20); BUN (Urea Nitrogen) 6 mg/dL (9.8-20.1); Calc. Creatinine Clearance 101 mL/min (70-130); Calcium 7.7 mg/dL (7.8-10.44); Carbon Dioxide 24 mmol/L (23-31); Chloride 103 mmol/L (98-107); Estimated GFR 106; Glucose 92 mg/dL (80-115); Magnesium 2.1 mg/dL (1.6-2.6); Potassium 3.4 mmol/L (3.5-5.1); Sodium 133 mmol/L (136-145)
[2023-01-01] MEDS ORDERED: Potassium Chloride 20 MEQ TAB PO SCH (08:00)
[2023-01-01] MEDS: Senokot S 8.6-50 MG TAB PO SCH (08:21)
[2023-01-01] MEDS: Cefdinir 300 MG CAP PO SCH (08:21)
[2023-01-01 11:24] VITALS: BP 113/64; TEMP 98
== END 2023-01-01 13:13 | disposition home or self-care (01) | DRG 871 ==
LOC: CSHERS 10:49 → CSHICU 15:54 → CSHTELE 12-30 15:59
PROVIDERS: ADMIT Hospitalist; ATTEND Internal Medicine
PROC: 3E03329 Introduction of Other Anti-infective into Peripheral Vein, Percutaneous Approach (ICD-10-PCS; principal; 2022-12-27)
PROC: 0DJ08ZZ Inspection of Upper Intestinal Tract, Via Natural or Artificial Opening Endoscopic (ICD-10-PCS; 2022-12-28)
DX: A40.3 Sepsis due to Streptococcus pneumoniae (principal); I85.11 Secondary esophageal varices with bleeding; J13 Pneumonia due to Streptococcus pneumoniae; J96.01 Acute respiratory failure with hypoxia; R65.20 Severe sepsis without septic shock; K92.0 Hematemesis; E87.1 Hypo-osmolality and hyponatremia; E87.20 Acidosis, unspecified; J90 Pleural effusion, not elsewhere classified; K76.6 Portal hypertension; N39.0 Urinary tract infection, site not specified; D62 Acute posthemorrhagic anemia; E44.0 Moderate protein-calorie malnutrition; Z66 Do not resuscitate; Z20.822 Contact with and (suspected) exposure to COVID-19; G89.4 Chronic pain syndrome; D63.8 Anemia in other chronic diseases classified elsewhere; K74.60 Unspecified cirrhosis of liver; M06.9 Rheumatoid arthritis, unspecified; K31.89 Other diseases of stomach and duodenum; D69.6 Thrombocytopenia, unspecified; E83.42 Hypomagnesemia; B96.20 Unspecified Escherichia coli [E. coli] as the cause of diseases classified elsewhere; I10 Essential (primary) hypertension; F17.210 Nicotine dependence, cigarettes, uncomplicated; K59.00 Constipation, unspecified; Z79.899 Other long term (current) drug therapy; Z71.6 Tobacco abuse counseling; Z88.5 Allergy status to narcotic agent; Z90.49 Acquired absence of other specified parts of digestive tract; Z68.21 Body mass index [BMI] 21.0-21.9, adult
CPT/HCPCS: 36415; 71045; 74177; 76705; 80048; 80053; 80074; 81003; 81015; 82103; 82105; 82728; 83516; 83540; 83550; 83605; 83690; 83735; 84100; 84484; 85025; 85610; 85730; 86015; 86038; 86225; 86850; 86900; 86901; 87040; 87077; 87086; 87186; 93005; 93010; 94760; 94799; 96361; 96365; 96366; 96367; 96374; 96375; 96376; C9113; J0692; J2354; J2405; J2704; J3010; J3370; J3475; J3480; J3490; J7050; Q9967

== ENCOUNTER 2023-01-17 17:36 | Inpatient (IN) | payer OTHER ==
[~2023-01-17 17:36] MED LIST changes: -Iopamidol 300 61% 100 ML VIAL FS ONE; +Iopamidol 370 76% 100 ML VIAL ONE
[2023-01-17 18:09] LABS: #Eosinphils 0.1 10x3/uL (0.0-0.5); #Monocytes 0.5 10x3/uL (0.0-1.1); #Neutrophils 4.2 10x3/uL (1.5-8.4); %Basophils 0.5 % (0.0-2.0); %Eosinophils 1.1 % (0.0-6.0); %Lymphocytes 25.3 % (18.0-47.0); %Monocytes 7.9 % (0.0-10.0); %Neutrophils 64.7 % (40.0-75.0); Hemoglobin 12.4 g/dL (12.0-15.5); Mean Corpuscular HGB CONC 31.4 g/dL (32.0-36.0); Mean Corpuscular Volume 92.5 fl (81.6-98.3); Mean Platelet Volume 8.8 fl (7.4-10.4); Platelet Count 189 10x3/uL (150-450); RBC Distribution Width 15.1 % (11.5-14.5); Red Blood Cell (RBC) Count 4.27 10x6/uL (3.90-5.03); White Blood Cell (WBC) Count 6.5 10x3/uL (3.5-10.5)
[2023-01-17 18:21] LABS: ALT (SGPT) 13 U/L (8-55); AST (SGOT) 35 U/L (5-34); Albumin 2.1 g/dL (3.4-4.8); Alkaline Phosphatase 103 U/L (40-110); Anion Gap 12 mmol/L (10-20); BUN (Urea Nitrogen) Less than 4 mg/dL (9.8-20.1); Bilirubin, Total 0.8 mg/dL (0.2-1.2); Calc. Creatinine Clearance 0 mL/min (70-130); Calcium 7.6 mg/dL (7.8-10.44); Carbon Dioxide 29 mmol/L (23-31); Chloride 96 mmol/L (98-107); Estimated GFR 102; Globulin 5.4 g/dL (2.4-3.5); Glucose 96 mg/dL (80-115); Potassium 3.6 mmol/L (3.5-5.1); Protein, Total 7.5 g/dL (5.8-8.1); Sodium 133 mmol/L (136-145)
[2023-01-17 18:32] LABS: INR-International Normal Ratio 1.5; PTT 28.5 sec (22.0-33.0); Prothrombin Time 15.8 sec (9.5-12.1)
[2023-01-17 18:34] LABS: Magnesium 1.8 mg/dL (1.6-2.6)
[2023-01-17 18:45] LABS: SARS-CoV-2 NAA Rapid Test Not Detected (NotDetected)
[2023-01-17] MEDS ORDERED: HYDROcodone/Acetaminophen 10/325 mg Tablet ONE (19:04)
[2023-01-17 20:48] LABS: Lactic Acid 1.1 mmol/L (0.5-2.2)
[2023-01-17] MEDS ORDERED: Piperacillin/Tazobactam 3.375 GM in Sodium Chloride 0.9% 100 ML IVPB SCH (22:00)
[2023-01-17] MEDS ORDERED: Ondansetron PF 4 MG/2 ML Vial IVP PRN (22:18)
[2023-01-17] MEDS ORDERED: Calcium Carbonate 500 MG ChewTAB PO PRN (22:18)
[2023-01-17] MEDS ORDERED: Guaifenesin DM 100-10/5 ML UDCUP PO PRN (22:18)
[2023-01-17] MEDS ORDERED: Acetaminophen 325 MG TAB PO PRN (22:18)
[2023-01-17] MEDS ORDERED: Ipratropium/Albuterol 3 ML NEB NEB PRN (22:22)
[2023-01-17] MEDS ORDERED: cefTRIAXone (ROCEPHIN) 1 GM VIAL ONE (22:31)
[2023-01-17] MEDS ORDERED: Vancomycin 1 GM VIAL ONE (23:09)
[2023-01-17] MEDS ORDERED: traMADol HCl 50 MG TAB ONE (23:59)
[2023-01-18] MEDS: traMADol HCl 50 MG TAB PO PRN ×2 (00:03→10:16)
[2023-01-18] MEDS ORDERED: Piperacillin/Tazobactam 3.375 GM VIAL ONE ×3 (01:32→13:46)
[2023-01-18] MEDS ORDERED: Piperacillin/Tazobactam 3.375 GM in Sodium Chloride 0.9% 100 ML IVPB SCH (02:00)
[2023-01-18 03:05] LABS: #Basophils 0.1 10x3/uL (0.0-0.2); #Eosinphils 0.1 10x3/uL (0.0-0.5); #Monocytes 0.5 10x3/uL (0.0-1.1); #Neutrophils 5.1 10x3/uL (1.5-8.4); %Basophils 0.8 % (0.0-2.0); %Eosinophils 1.9 % (0.0-6.0); %Lymphocytes 22.1 % (18.0-47.0); %Monocytes 6.5 % (0.0-10.0); %Neutrophils 68.4 % (40.0-75.0); Hemoglobin 10.7 g/dL (12.0-15.5); Mean Corpuscular HGB CONC 30.8 g/dL (32.0-36.0); Mean Platelet Volume 8.5 fl (7.4-10.4); Platelet Count 179 10x3/uL (150-450); RBC Distribution Width 14.9 % (11.5-14.5); Red Blood Cell (RBC) Count 3.69 10x6/uL (3.90-5.03); White Blood Cell (WBC) Count 7.4 10x3/uL (3.5-10.5)
[2023-01-18 03:25] LABS: ALT (SGPT) 12 U/L (8-55); AST (SGOT) 27 U/L (5-34); Albumin 1.8 g/dL (3.4-4.8); Alkaline Phosphatase 89 U/L (40-110); Anion Gap 8 mmol/L (10-20); BUN (Urea Nitrogen) Less than 4 mg/dL (9.8-20.1); Bilirubin, Total 0.6 mg/dL (0.2-1.2); Calc. Creatinine Clearance 0 mL/min (70-130); Calcium 7.5 mg/dL (7.8-10.44); Carbon Dioxide 29 mmol/L (23-31); Chloride 99 mmol/L (98-107); Estimated GFR 105; Globulin 4.7 g/dL (2.4-3.5); Glucose 78 mg/dL (80-115); Magnesium 1.7 mg/dL (1.6-2.6); Potassium 2.9 mmol/L (3.5-5.1); Protein, Total 6.5 g/dL (5.8-8.1); Sodium 133 mmol/L (136-145)
[2023-01-18] MEDS: Piperacillin/Tazobactam 3.375 GM in Sodium Chloride 0.9% 100 ML IVPB SCH ×3 (06:01→21:01)
[2023-01-18] MEDS ORDERED: Potassium Chloride 20 MEQ in Premix Bag 1 BAG IVPB SCH (06:30)
[2023-01-18] MEDS ORDERED: Potassium Chloride 20 MEQ TAB PO SCH ×2 (06:30→09:30)
[2023-01-18] MEDS ORDERED: Potassium Chloride 20 MEQ TAB ONE (07:07)
[2023-01-18] MEDS ORDERED: Folic Acid 1 MG TAB ONE (07:08)
[2023-01-18] MEDS ORDERED: Potassium Chloride 20 MEQ/100 ML PREMIX BAG ONE (07:08)
[2023-01-18] MEDS: Budesonide 0.5 MG/2 ML NEB NEB SCH ×2 (07:40→22:13)
[2023-01-18] MEDS ORDERED: Budesonide 0.5 MG/2 ML NEB ONE (07:41)
[2023-01-18] MEDS ORDERED: Electrolyte Replacement Protocol 1 EACH FS SCH (08:00)
[2023-01-18] MEDS: Acetylcysteine 800 MG/4 ML VIAL PO SCH ×2 (08:08→21:10)
[2023-01-18] MEDS: Folic Acid 1 MG TAB PO SCH (08:08)
[2023-01-18] MEDS: guaiFENesin ER 600 MG TAB PO SCH ×2 (08:08→21:00)
[2023-01-18] MEDS: Calcium Carbonate 600 MG + Vit D TAB PO SCH ×2 (08:08→21:00)
[2023-01-18] MEDS: Cyanocobalamin (Vitamin B-12) 1,000 MCG TAB PO SCH (08:08)
[2023-01-18] MEDS ORDERED: Magnesium 2 GM/50 ML(in water) 2 GM in Premix Bag 1 BAG IVPB SCH (09:30)
[2023-01-18] MEDS ORDERED: Magnesium 2 GM/50 ML BAG (IN WATER) ONE (09:39)
[2023-01-18] MEDS ORDERED: traMADol HCl 50 MG TAB ONE (10:15)
[2023-01-18] MEDS: Vancomycin HCl 125 MG/5 ML (BATCHED) UDCUP PO SCH ×3 (11:54→23:58)
[2023-01-18] MEDS ORDERED: Morphine 2 MG/ML VIAL SLOW IVP PRN (12:28)
[2023-01-18] MEDS ORDERED: HYDROcodone/Acetaminophen 5/325 mg Tablet ONE (16:00)
[2023-01-18] MEDS: HYDROcodone/Acetaminophen 5/325 mg Tablet PO PRN ×2 (16:06→23:58)
[2023-01-18 16:53] LABS: Magnesium 2.2 mg/dL (1.6-2.6)
[2023-01-18 18:42] LABS: Calcium 7.9 mg/dL (7.8-10.44)
[2023-01-18] MEDS: Multivit, Therapeutic 1 TAB PO SCH (21:00)
[2023-01-18] MEDS: Mirtazapine 15 MG TAB PO SCH (21:00)
[2023-01-18] MEDS: Nadolol 40 MG TAB PO SCH (21:01)
[2023-01-18 22:02] LABS: Campy jejuni + coli by PCR Negative (Negative); STEC Shiga Toxin 1+2 Negative (Negative); Salmonella spp. by PCR Negative (Negative); Shigella spp + EIEC by PCR Negative (Negative)
[2023-01-19 04:59] LABS: #Eosinphils 0.1 10x3/uL (0.0-0.5); #Monocytes 0.5 10x3/uL (0.0-1.1); #Neutrophils 3.1 10x3/uL (1.5-8.4); %Basophils 0.6 % (0.0-2.0); %Eosinophils 2.4 % (0.0-6.0); %Lymphocytes 30.2 % (18.0-47.0); %Monocytes 8.9 % (0.0-10.0); %Neutrophils 57.7 % (40.0-75.0); Anion Gap 11 mmol/L (10-20); BUN (Urea Nitrogen) Less than 4 mg/dL (9.8-20.1); Calc. Creatinine Clearance 0 mL/min (70-130); Calcium 7.7 mg/dL (7.8-10.44); Carbon Dioxide 28 mmol/L (23-31); Chloride 100 mmol/L (98-107); Estimated GFR 105; Glucose 77 mg/dL (80-115); Hemoglobin 10.2 g/dL (12.0-15.5); Mean Corpuscular HGB CONC 30.7 g/dL (32.0-36.0); Mean Corpuscular Hemoglobin 28.7 pg (27.0-33.0); Mean Corpuscular Volume 93.5 fl (81.6-98.3); Mean Platelet Volume 8.9 fl (7.4-10.4); Phosphorus 2.3 mg/dL (2.3-4.7); Platelet Count 158 10x3/uL (150-450); Potassium 3.6 mmol/L (3.5-5.1); RBC Distribution Width 14.7 % (11.5-14.5); Red Blood Cell (RBC) Count 3.55 10x6/uL (3.90-5.03); Sodium 135 mmol/L (136-145); White Blood Cell (WBC) Count 5.4 10x3/uL (3.5-10.5)
[2023-01-19] MEDS ORDERED: Magnesium 2 GM/50 ML(in water) 2 GM in Premix Bag 1 BAG IVPB SCH (05:15)
[2023-01-19] MEDS: Vancomycin HCl 125 MG/5 ML (BATCHED) UDCUP PO SCH ×3 (06:19→19:15)
[2023-01-19] MEDS: Piperacillin/Tazobactam 3.375 GM in Sodium Chloride 0.9% 100 ML IVPB SCH ×3 (06:19→22:20)
[2023-01-19] MEDS: Budesonide 0.5 MG/2 ML NEB NEB SCH ×2 (07:25→19:25)
[2023-01-19] MEDS: Acetylcysteine 800 MG/4 ML VIAL PO SCH ×2 (07:35→21:04)
[2023-01-19 08:13] VITALS: BMI 23.0
[2023-01-19] MEDS: Calcium Carbonate 600 MG + Vit D TAB PO SCH ×2 (09:13→21:04)
[2023-01-19] MEDS: Folic Acid 1 MG TAB PO SCH (09:13)
[2023-01-19] MEDS: Cyanocobalamin (Vitamin B-12) 1,000 MCG TAB PO SCH (09:13)
[2023-01-19] MEDS: guaiFENesin ER 600 MG TAB PO SCH ×2 (09:13→21:04)
[2023-01-19] MEDS: HYDROcodone/Acetaminophen 5/325 mg Tablet PO PRN ×2 (09:15→21:05)
[2023-01-19] MEDS: Multivit, Therapeutic 1 TAB PO SCH (21:04)
[2023-01-19] MEDS: Mirtazapine 15 MG TAB PO SCH (21:04)
[2023-01-19] MEDS: Nadolol 40 MG TAB PO SCH (21:12)
[2023-01-20] MEDS: Vancomycin HCl 125 MG/5 ML (BATCHED) UDCUP PO SCH ×4 (00:17→18:28)
[2023-01-20 04:34] LABS: #Eosinphils 0.1 10x3/uL (0.0-0.5); #Monocytes 0.3 10x3/uL (0.0-1.1); %Basophils 0.4 % (0.0-2.0); %Eosinophils 2.6 % (0.0-6.0); %Lymphocytes 24.7 % (18.0-47.0); %Monocytes 7.3 % (0.0-10.0); %Neutrophils 64.6 % (40.0-75.0); Hemoglobin 11.4 g/dL (12.0-15.5); Mean Corpuscular HGB CONC 30.4 g/dL (32.0-36.0); Mean Corpuscular Hemoglobin 28.4 pg (27.0-33.0); Mean Corpuscular Volume 93.5 fl (81.6-98.3); Platelet Count 161 10x3/uL (150-450); RBC Distribution Width 14.6 % (11.5-14.5); Red Blood Cell (RBC) Count 4.01 10x6/uL (3.90-5.03); White Blood Cell (WBC) Count 4.7 10x3/uL (3.5-10.5)
[2023-01-20 04:43] LABS: Anion Gap 7 mmol/L (10-20); BUN (Urea Nitrogen) Less than 4 mg/dL (9.8-20.1); Calc. Creatinine Clearance 91 mL/min (70-130); Calcium 7.5 mg/dL (7.8-10.44); Carbon Dioxide 30 mmol/L (23-31); Chloride 102 mmol/L (98-107); Estimated GFR 104; Glucose 107 mg/dL (80-115); Magnesium 1.9 mg/dL (1.6-2.6); Potassium 3.4 mmol/L (3.5-5.1); Sodium 136 mmol/L (136-145)
[2023-01-20] MEDS ORDERED: Potassium Chloride 20 MEQ TAB PO SCH (06:00)
[2023-01-20] MEDS ORDERED: Magnesium 2 GM/50 ML(in water) 2 GM in Premix Bag 1 BAG IVPB SCH (06:00)
[2023-01-20] MEDS: Piperacillin/Tazobactam 3.375 GM in Sodium Chloride 0.9% 100 ML IVPB SCH (06:40)
[2023-01-20] MEDS: Budesonide 0.5 MG/2 ML NEB NEB SCH ×2 (06:45→20:05)
[2023-01-20] MEDS: Acetylcysteine 800 MG/4 ML VIAL PO SCH ×2 (09:00→21:20)
[2023-01-20] MEDS ORDERED: Saccharomyces boulardii 250 MG CAP PO SCH (09:15)
[2023-01-20] MEDS: Calcium Carbonate 600 MG + Vit D TAB PO SCH ×2 (09:39→21:22)
[2023-01-20] MEDS: Cyanocobalamin (Vitamin B-12) 1,000 MCG TAB PO SCH (09:39)
[2023-01-20] MEDS: Folic Acid 1 MG TAB PO SCH (09:39)
[2023-01-20] MEDS: guaiFENesin ER 600 MG TAB PO SCH ×2 (09:39→21:20)
[2023-01-20] MEDS: HYDROcodone/Acetaminophen 5/325 mg Tablet PO PRN ×2 (09:40→21:21)
[2023-01-20] MEDS ORDERED: Lidocaine 2% 6 ML SYR TOP PRN (13:23)
[2023-01-20] MEDS ORDERED: HYDROmorphone 0.5 MG/0.5 ML SYRINGE SLOW IVP SCH (16:30)
[2023-01-20] MEDS: Multivit, Therapeutic 1 TAB PO SCH (21:22)
[2023-01-20] MEDS: Mirtazapine 15 MG TAB PO SCH (21:22)
[2023-01-20] MEDS: Nadolol 40 MG TAB PO SCH (21:23)
[2023-01-21] MEDS: Vancomycin HCl 125 MG/5 ML (BATCHED) UDCUP PO SCH ×4 (00:04→19:54)
[2023-01-21 05:34] LABS: #Eosinphils 0.2 10x3/uL (0.0-0.5); #Monocytes 0.4 10x3/uL (0.0-1.1); #Neutrophils 2.5 10x3/uL (1.5-8.4); %Basophils 0.6 % (0.0-2.0); %Eosinophils 3.4 % (0.0-6.0); %Lymphocytes 33.6 % (18.0-47.0); %Monocytes 7.7 % (0.0-10.0); %Neutrophils 54.5 % (40.0-75.0); Mean Corpuscular HGB CONC 30.4 g/dL (32.0-36.0); Mean Corpuscular Volume 95.5 fl (81.6-98.3); Platelet Count 177 10x3/uL (150-450); RBC Distribution Width 14.6 % (11.5-14.5); Red Blood Cell (RBC) Count 3.79 10x6/uL (3.90-5.03); White Blood Cell (WBC) Count 4.7 10x3/uL (3.5-10.5)
[2023-01-21 05:48] LABS: Anion Gap 11 mmol/L (10-20); BUN (Urea Nitrogen) 4 mg/dL (9.8-20.1); Calc. Creatinine Clearance 81 mL/min (70-130); Calcium 7.8 mg/dL (7.8-10.44); Carbon Dioxide 26 mmol/L (23-31); Chloride 104 mmol/L (98-107); Estimated GFR 101; Glucose 162 mg/dL (80-115); Magnesium 1.9 mg/dL (1.6-2.6); Potassium 4.1 mmol/L (3.5-5.1); Sodium 137 mmol/L (136-145)
[2023-01-21] MEDS ORDERED: Magnesium 2 GM/50 ML(in water) 2 GM in Premix Bag 1 BAG IVPB SCH (06:00)
[2023-01-21] MEDS: HYDROcodone/Acetaminophen 5/325 mg Tablet PO PRN ×3 (06:16→22:29)
[2023-01-21] MEDS: Acetylcysteine 800 MG/4 ML VIAL PO SCH ×2 (10:00→22:28)
[2023-01-21] MEDS: Budesonide 0.5 MG/2 ML NEB NEB SCH ×2 (10:00→18:56)
[2023-01-21] MEDS: Calcium Carbonate 600 MG + Vit D TAB PO SCH ×2 (10:45→21:32)
[2023-01-21] MEDS: Folic Acid 1 MG TAB PO SCH (10:45)
[2023-01-21] MEDS: Saccharomyces boulardii 250 MG CAP PO SCH (10:45)
[2023-01-21] MEDS: guaiFENesin ER 600 MG TAB PO SCH ×2 (10:45→21:33)
[2023-01-21] MEDS: Cyanocobalamin (Vitamin B-12) 1,000 MCG TAB PO SCH (10:46)
[2023-01-21] MEDS: Mirtazapine 15 MG TAB PO SCH (21:32)
[2023-01-21] MEDS: Nadolol 40 MG TAB PO SCH (21:32)
[2023-01-21] MEDS: Multivit, Therapeutic 1 TAB PO SCH (21:33)
[2023-01-22] MEDS: Vancomycin HCl 125 MG/5 ML (BATCHED) UDCUP PO SCH ×5 (01:29→23:20)
[2023-01-22] MEDS: HYDROcodone/Acetaminophen 5/325 mg Tablet PO PRN ×3 (02:21→23:02)
[2023-01-22 06:14] LABS: Magnesium 1.9 mg/dL (1.6-2.6)
[2023-01-22] MEDS: Budesonide 0.5 MG/2 ML NEB NEB SCH ×2 (08:25→21:15)
[2023-01-22] MEDS: Magnesium 2 GM/50 ML(in water) 2 GM in Premix Bag 1 BAG IVPB SCH ×2 (09:03→10:36)
[2023-01-22] MEDS: Acetylcysteine 800 MG/4 ML VIAL PO SCH ×2 (09:04→21:40)
[2023-01-22] MEDS: Calcium Carbonate 600 MG + Vit D TAB PO SCH ×2 (09:04→21:41)
[2023-01-22] MEDS: Folic Acid 1 MG TAB PO SCH (09:05)
[2023-01-22] MEDS: guaiFENesin ER 600 MG TAB PO SCH ×2 (09:05→21:42)
[2023-01-22] MEDS: Cyanocobalamin (Vitamin B-12) 1,000 MCG TAB PO SCH (09:06)
[2023-01-22] MEDS: Saccharomyces boulardii 250 MG CAP PO SCH (09:06)
[2023-01-22] MEDS: Multivit, Therapeutic 1 TAB PO SCH (21:41)
[2023-01-22] MEDS: Mirtazapine 15 MG TAB PO SCH (21:42)
[2023-01-22] MEDS: Nadolol 40 MG TAB PO SCH (23:24)
[2023-01-23] MEDS: HYDROcodone/Acetaminophen 5/325 mg Tablet PO PRN ×6 (02:48→23:11)
[2023-01-23] MEDS ORDERED: Magnesium 2 GM/50 ML(in water) 2 GM in Premix Bag 1 BAG IVPB SCH (06:00)
[2023-01-23] MEDS: Vancomycin HCl 125 MG/5 ML (BATCHED) UDCUP PO SCH ×4 (06:43→23:11)
[2023-01-23] MEDS: Budesonide 0.5 MG/2 ML NEB NEB SCH ×2 (07:24→20:35)
[2023-01-23] MEDS: Calcium Carbonate 600 MG + Vit D TAB PO SCH ×2 (09:42→21:33)
[2023-01-23] MEDS: Cyanocobalamin (Vitamin B-12) 1,000 MCG TAB PO SCH (09:42)
[2023-01-23] MEDS: Folic Acid 1 MG TAB PO SCH (09:42)
[2023-01-23] MEDS: Saccharomyces boulardii 250 MG CAP PO SCH (09:43)
[2023-01-23] MEDS: guaiFENesin ER 600 MG TAB PO SCH ×2 (09:43→21:33)
[2023-01-23] MEDS: Acetylcysteine 800 MG/4 ML VIAL PO SCH ×2 (10:54→21:33)
[2023-01-23] MEDS: Nadolol 40 MG TAB PO SCH (21:33)
[2023-01-23] MEDS: Multivit, Therapeutic 1 TAB PO SCH (21:33)
[2023-01-23] MEDS: Mirtazapine 15 MG TAB PO SCH (21:33)
[2023-01-24 05:32] LABS: Magnesium 1.8 mg/dL (1.6-2.6)
[2023-01-24] MEDS: Vancomycin HCl 125 MG/5 ML (BATCHED) UDCUP PO SCH ×2 (05:42→13:24)
[2023-01-24] MEDS ORDERED: Magnesium 2 GM/50 ML(in water) 2 GM in Premix Bag 1 BAG IVPB SCH (06:00)
[2023-01-24] MEDS: Budesonide 0.5 MG/2 ML NEB NEB SCH (07:45)
[2023-01-24] MEDS: Acetylcysteine 800 MG/4 ML VIAL PO SCH (08:50)
[2023-01-24] MEDS: HYDROcodone/Acetaminophen 5/325 mg Tablet PO PRN ×2 (08:50→13:24)
[2023-01-24] MEDS: Calcium Carbonate 600 MG + Vit D TAB PO SCH (08:50)
[2023-01-24] MEDS: guaiFENesin ER 600 MG TAB PO SCH (08:50)
[2023-01-24] MEDS: Cyanocobalamin (Vitamin B-12) 1,000 MCG TAB PO SCH (08:51)
[2023-01-24] MEDS: Folic Acid 1 MG TAB PO SCH (08:51)
[2023-01-24] MEDS: Saccharomyces boulardii 250 MG CAP PO SCH (08:52)
[2023-01-24 12:07] VITALS: BP 108/67; TEMP 98
== END 2023-01-24 13:27 | DRG 981 ==
LOC: CSHERS 17:36 → CSHERHOLD 22:43 → CSHTELE 01-18 17:42
PROVIDERS: ADMIT Student in an Organized Health Care Education/Training Program; ATTEND Internal Medicine
PROC: 0KBP0ZZ Excision of Left Hip Muscle, Open Approach (ICD-10-PCS; principal; 2023-01-20)
PROC: 0KBN0ZZ Excision of Right Hip Muscle, Open Approach (ICD-10-PCS; 2023-01-20)
DX: J18.9 Pneumonia, unspecified organism (principal); J96.01 Acute respiratory failure with hypoxia; L89.153 Pressure ulcer of sacral region, stage 3; E44.0 Moderate protein-calorie malnutrition; E87.1 Hypo-osmolality and hyponatremia; R64 Cachexia; A04.72 Enterocolitis due to Clostridium difficile, not specified as recurrent; R62.7 Adult failure to thrive; R53.81 Other malaise; Z20.822 Contact with and (suspected) exposure to COVID-19; E87.6 Hypokalemia; K70.30 Alcoholic cirrhosis of liver without ascites; I10 Essential (primary) hypertension; M06.9 Rheumatoid arthritis, unspecified; Z74.01 Bed confinement status; Z88.5 Allergy status to narcotic agent; Z79.899 Other long term (current) drug therapy; Z90.49 Acquired absence of other specified parts of digestive tract; Z87.891 Personal history of nicotine dependence; Z68.23 Body mass index [BMI] 23.0-23.9, adult; Z87.01 Personal history of pneumonia (recurrent)
CPT/HCPCS: 36415; 71045; 71275; 80048; 80053; 83605; 83630; 83735; 83880; 84100; 84145; 84443; 84484; 85025; 85610; 85730; 87040; 87149; 87324; 87449; 87493; 87505; 93005; 93306; 94640; 94760; 94762; 96365; 96366; 96367; 97139; J0696; J1170; J1650; J2543; J3370; J3475; J3480; J3490; J7611; J7620; J7626; Q9967; U0002

== ENCOUNTER 2023-02-13 08:44 | Emergency (ER) | payer OTHER, MEDICARE ==
[2023-02-13] MEDS ORDERED: Iopamidol 300 61% 100 ML VIAL FS ONE (08:49)
[2023-02-13 10:18] LABS: #Eosinphils 0.1 10x3/uL (0.0-0.5); #Monocytes 0.6 10x3/uL (0.0-1.1); #Neutrophils 5.2 10x3/uL (1.5-8.4); %Basophils 0.4 % (0.0-2.0); %Eosinophils 1.3 % (0.0-6.0); %Lymphocytes 27.6 % (18.0-47.0); %Monocytes 6.9 % (0.0-10.0); %Neutrophils 63.1 % (40.0-75.0); Hemoglobin 9.5 g/dL (12.0-15.5); Mean Corpuscular HGB CONC 30.7 g/dL (32.0-36.0); Mean Corpuscular Volume 94.2 fl (81.6-98.3); Mean Platelet Volume 10.3 fl (7.4-10.4); Platelet Count 98 10x3/uL (150-450); RBC Distribution Width 17.5 % (11.5-14.5); Red Blood Cell (RBC) Count 3.28 10x6/uL (3.90-5.03); White Blood Cell (WBC) Count 8.2 10x3/uL (3.5-10.5)
[2023-02-13 10:22] LABS: Actual Bicarbonate (HCO3v) 31 mEq/L (22-28); Base Excess 8.5 mEq/L (-2 - +2); Calcium, Ionized (venous) 1.03 mmol/L (1.16-1.32); Chloride (VBG) 96 mmol/L (98-106); Critical Notified Whom: WHITBA; Hemoglobin (Hb) 10.6 g/dL (11.7-16.1); Potassium (VBG) 4.12 mmol/L (3.70-5.30); Puncture Site Other Site; RapidComm Collect By CBN; Sodium 132.1 mmol/L (133-146); pH (venous) 7.59 (7.32-7.43)
[2023-02-13] MEDS ORDERED: Fentanyl 100 MCG/2 ML VIAL ONE (10:33)
[2023-02-13 10:35] LABS: ALT (SGPT) 19 U/L (8-55); AST (SGOT) 34 U/L (5-34); Albumin 1.7 g/dL (3.4-4.8); Alkaline Phosphatase 138 U/L (40-110); Anion Gap 11 mmol/L (10-20); BUN (Urea Nitrogen) 7 mg/dL (9.8-20.1); Bilirubin, Total 0.7 mg/dL (0.2-1.2); Calc. Creatinine Clearance 0 mL/min (70-130); Calcium 7.8 mg/dL (7.8-10.44); Carbon Dioxide 32 mmol/L (23-31); Chloride 96 mmol/L (98-107); Estimated GFR 105; Globulin 5.1 g/dL (2.4-3.5); Glucose 81 mg/dL (80-115); Lipase 9 U/L (8-78); Potassium 4.1 mmol/L (3.5-5.1); Protein, Total 6.8 g/dL (5.8-8.1); Sodium 135 mmol/L (136-145)
[2023-02-13 10:43] LABS: Large Platelets SLIGHT; Platelet Morphology Comment PLT clumps seen-LOW; Polychromasia SLIGHT = 2-3 cells (100X) (0-2/hpf)
== END 2023-02-13 12:45 ==
LOC: CSHERS 08:44
DX: L89.159 Pressure ulcer of sacral region, unspecified stage (principal); I10 Essential (primary) hypertension; K21.9 Gastro-esophageal reflux disease without esophagitis; E03.9 Hypothyroidism, unspecified; J44.9 Chronic obstructive pulmonary disease, unspecified; F17.200 Nicotine dependence, unspecified, uncomplicated
CPT/HCPCS: 71045; 74177; 80053; 82805; 83605; 83690; 84484; 85025; 96361; 96374; 96376; J3010; Q9967